=== PATIENT | female | born 1950 | race Caucasian/White ===

== ENCOUNTER 2023-06-29 09:27 | Emergency (ER) | payer MEDICARE ==
[2023-06-29 10:17] LABS: BASOPHILS ABSOLUTE AUTO 0.1 x10^3/uL (0.0-0.2); BASOPHILS PERCENT AUTO 0.6 % (0.2-1.2); EOSINOPHILS ABSOLUTE AUTO 0.1 x10^3/uL (0.0-0.5); HEMATOCRIT 43.7 % (33.0-47.0); HEMOGLOBIN 14.1 g/dL (12.0-16.0); IMMATURE GRAN ABSOLUTE AUTO 0.02 x10^3/uL (0.00-0.07); LYMPHOCYTES ABSOLUTE AUTO 2.3 x10^3/uL (1.0-4.8); LYMPHOCYTES PERCENT AUTO 27.5 % (25.0-50.0); MEAN CORPUSCULAR HEMOGLOBIN 31.8 pg (26.0-32.0); MEAN CORPUSCULAR HGB CONC 32.3 g/dL (32.0-36.0); MEAN CORPUSCULAR VOLUME 98.4 fL (78.0-93.0); MONOCYTES ABSOLUTE AUTO 0.4 x10^3/uL (0.0-0.8); MONOCYTES PERCENT AUTO 4.9 % (2.0-11.0); NEUTROPHILS ABSOLUTE AUTO 5.5 x10^3/uL (1.8-7.7); NEUTROPHILS PERCENT AUTO 65.8 % (50.0-80.0); PLATELET COUNT,PLT 494 x10^3/uL (130-400); RED BLOOD CELL COUNT 4.44 x10^6/uL (4.00-5.50); WHITE BLOOD CELL COUNT,WBC 8.4 x10^3/uL (4.0-10.0)
[2023-06-29 10:28] LABS: INR 0.9 (0.9-1.1); PROTHROMBIN TIME 10.1 SEC (9.5-12.2)
[2023-06-29 10:32] LABS: A/G RATIO 0.62; ALANINE AMINOTRANSFERASE,ALT 20 U/L (14-59); ALBUMIN 3.3 g/dL (3.4-5.0); ALKALINE PHOSPHATASE 147 U/L (46-116); ASPARTATE AMNIOTRANSFERASE,AST 19 U/L (15-37); BILIRUBIN TOTAL 0.2 mg/dL (0.2-1.0); BLOOD UREA NITROGEN,BUN 9 mg/dL (7-18); CALCIUM 9.5 mg/dL (8.5-10.1); CARBON DIOXIDE,CO2 32 mmol/L (21-32); CHLORIDE,CL 101 mmol/L (98-107); CREATININE 0.7 mg/dL (0.55-1.02); GLUCOSE RANDOM 110 mg/dL (70-99); MAGNESIUM 1.6 mg/dL (1.8-2.4); POTASSIUM,K 3.6 mmol/L (3.5-5.1); PROTEIN TOTAL,TP 8.6 g/dL (6.4-8.2); SODIUM,NA 142 mmol/L (136-145)
[2023-06-29 10:33] LABS: ANION GAP 12.6 mmol/L (5-15); ESTIMATED GFR 91 mL/min (>=60)
[2023-06-29 11:04] VITALS: BP 182/81; PULSE 68
== END 2023-06-29 10:55 | disposition home or self-care (01) ==
LOC: VM.ED 09:27
DX: J44.1 Chronic obstructive pulmonary disease with (acute) exacerbation (principal); I10 Essential (primary) hypertension; E78.00 Pure hypercholesterolemia, unspecified; F17.210 Nicotine dependence, cigarettes, uncomplicated; Z88.8 Allergy status to other drugs, medicaments and biological substances; Z79.899 Other long term (current) drug therapy
CPT/HCPCS: 36415; 71045; 80053; 83735; 84484; 85025; 85610; 85730; 93005; 93010; 99284; 99285

== ENCOUNTER 2024-05-18 18:23 | Emergency (ER) | payer MEDICARE ==
[2024-05-18] MEDS ORDERED: Sodium Chloride 0.9% 10 ML Syringe FLUSH PRN (18:32)
[2024-05-18] MEDS: Diltiazem 50 MG/10 ML SDV IVPUSH ONE ×2 (18:39→19:31)
[2024-05-18 18:42] LABS: BASOPHILS PERCENT AUTO 0.2 % (0.2-1.2); EOSINOPHILS ABSOLUTE AUTO 0.1 x10^3/uL (0.0-0.5); EOSINOPHILS PERCENT AUTO 0.8 % (0.0-4.0); HEMATOCRIT 45.9 % (33.0-47.0); HEMOGLOBIN 15.2 g/dL (12.0-16.0); IMMATURE GRAN ABSOLUTE AUTO 0.02 x10^3/uL (0.00-0.07); LYMPHOCYTES ABSOLUTE AUTO 3.2 x10^3/uL (1.0-4.8); LYMPHOCYTES PERCENT AUTO 25.5 % (25.0-50.0); MEAN CORPUSCULAR HEMOGLOBIN 33.3 pg (26.0-32.0); MEAN CORPUSCULAR HGB CONC 33.1 g/dL (32.0-36.0); MEAN CORPUSCULAR VOLUME 100.4 fL (78.0-93.0); MONOCYTES ABSOLUTE AUTO 0.8 x10^3/uL (0.0-0.8); MONOCYTES PERCENT AUTO 6.4 % (2.0-11.0); NEUTROPHILS ABSOLUTE AUTO 8.5 x10^3/uL (1.8-7.7); NEUTROPHILS PERCENT AUTO 66.9 % (50.0-80.0); PLATELET COUNT,PLT 368 x10^3/uL (130-400); RED BLOOD CELL COUNT 4.57 x10^6/uL (4.00-5.50); WHITE BLOOD CELL COUNT,WBC 12.6 x10^3/uL (4.0-10.0)
[2024-05-18 18:55] LABS: INR 0.9 (0.9-1.1); PROTHROMBIN TIME 9.6 SEC (8.9-11.5)
[2024-05-18 19:02] LABS: A/G RATIO 0.7; ALBUMIN 3.5 g/dL (3.4-5.0); BILIRUBIN TOTAL 0.2 mg/dL (0.2-1.0); CALCIUM 9.5 mg/dL (8.5-10.1); EST CRCL DRUG DOSING (CG) 25.45 mL/min; POTASSIUM,K 4.4 mmol/L (3.5-5.1); PROTEIN TOTAL,TP 8.5 g/dL (6.4-8.2)
[2024-05-18 19:04] LABS: ANION GAP 15.4 mmol/L (5-15)
[2024-05-18 19:09] VITALS: PULSE 107
[2024-05-18] MEDS ORDERED: Diltiazem 125 MG in Sodium Chloride 0.9% 100 ML IV SCH (19:30)
[2024-05-18 21:21] VITALS: BP 120/76
== END 2024-05-18 20:15 | disposition short-term general hospital (02) ==
LOC: VM.ED 18:23
DX: I48.91 Unspecified atrial fibrillation (principal); E78.00 Pure hypercholesterolemia, unspecified; Z79.899 Other long term (current) drug therapy; Z88.5 Allergy status to narcotic agent; Z88.8 Allergy status to other drugs, medicaments and biological substances
CPT/HCPCS: 71045; 80053; 84484; 85025; 85610; 93005; 93010; 96374; 96376; 99284; 99285-25; J3490

== ENCOUNTER 2025-01-06 16:29 | Inpatient (IN) | payer MEDICARE ==
[2025-01-06] MEDS: Ibuprofen 200 MG Tab PO STA (17:16)
[2025-01-06] MEDS: Ondansetron 4 MG/2 ML SDV IVPUSH ONE (17:52)
[2025-01-06] MEDS: HYDROmorphone 0.5 MG/0.5 ML Syringe IVPUSH ONE (17:53)
[2025-01-06 17:58] LABS: BASOPHILS PERCENT AUTO 0.4 % (0.2-1.2); EOSINOPHILS ABSOLUTE AUTO 0.1 x10^3/uL (0.0-0.5); EOSINOPHILS PERCENT AUTO 0.5 % (0.0-4.0); HEMATOCRIT 40.3 % (33.0-47.0); HEMOGLOBIN 13.5 g/dL (12.0-16.0); IMMATURE GRAN ABSOLUTE AUTO 0.03 x10^3/uL (0.00-0.07); LYMPHOCYTES ABSOLUTE AUTO 2.1 x10^3/uL (1.0-4.8); MEAN CORPUSCULAR HEMOGLOBIN 32.1 pg (26.0-32.0); MEAN CORPUSCULAR HGB CONC 33.5 g/dL (32.0-36.0); MONOCYTES ABSOLUTE AUTO 0.7 x10^3/uL (0.0-0.8); MONOCYTES PERCENT AUTO 6.9 % (2.0-11.0); NEUTROPHILS PERCENT AUTO 70.9 % (50.0-80.0); PLATELET COUNT,PLT 333 x10^3/uL (130-400); WHITE BLOOD CELL COUNT,WBC 9.8 x10^3/uL (4.0-10.0)
[2025-01-06 18:14] LABS: INR 1.5 (0.9-1.1); PROTHROMBIN TIME 15.5 SEC (9.6-12.0)
[2025-01-06] MEDS: diazePAM 10 MG/2 ML Syringe IVPUSH ONE (18:15)
[2025-01-06 18:20] LABS: A/G RATIO 0.88; ALBUMIN 3.6 g/dL (3.4-5.0); BILIRUBIN TOTAL 0.2 mg/dL (0.2-1.0); CALCIUM 9.7 mg/dL (8.5-10.1); CREATININE 0.9 mg/dL (0.55-1.02); EST CRCL DRUG DOSING (CG) 29.89 mL/min; POTASSIUM,K 5.5 mmol/L (3.5-5.1); PROTEIN TOTAL,TP 7.7 g/dL (6.4-8.2)
[2025-01-06 18:22] LABS: ANION GAP 15.5 mmol/L (5-15)
[2025-01-06] MEDS ORDERED: Flumazenil 0.1 MG/ML 5 ML MDV IVPUSH PRN (18:41)
[2025-01-06] MEDS ORDERED: Albuterol 0.083% 2.5 MG/3 ML Neb Soln INH PRN (20:26)
[2025-01-06] MEDS ORDERED: GLYCOPYR INH SCH (21:00)
[2025-01-06] MEDS ORDERED: BUDESONIDE INH SCH (21:00)
[2025-01-06] MEDS ORDERED: FORMOTEROL INH SCH (21:00)
[2025-01-06] MEDS: Acetaminophen 325 MG Tab PO PRN (21:41)
[2025-01-06] MEDS: Metoprolol Tartrate 25 MG Tab PO SCH (21:42)
[2025-01-06] MEDS: atorvaSTATin 10 MG Tab PO SCH (21:45)
[2025-01-07] MEDS: HYDROmorphone 0.5 MG/0.5 ML Syringe IVPUSH ONE (01:10)
[2025-01-07] MEDS: diazePAM 10 MG/2 ML Syringe IVPUSH ONE (04:49)
[2025-01-07] MEDS: Sodium Chloride 0.9% 1,000 ML IV SCH (06:41)
[2025-01-07 07:25] LABS: BASOPHILS PERCENT AUTO 0.4 % (0.2-1.2); EOSINOPHILS ABSOLUTE AUTO 0.1 x10^3/uL (0.0-0.5); EOSINOPHILS PERCENT AUTO 0.6 % (0.0-4.0); HEMATOCRIT 36.8 % (33.0-47.0); HEMOGLOBIN 12.2 g/dL (12.0-16.0); IMMATURE GRAN ABSOLUTE AUTO 0.02 x10^3/uL (0.00-0.07); LYMPHOCYTES ABSOLUTE AUTO 2.3 x10^3/uL (1.0-4.8); LYMPHOCYTES PERCENT AUTO 23.3 % (25.0-50.0); MEAN CORPUSCULAR HEMOGLOBIN 32.6 pg (26.0-32.0); MEAN CORPUSCULAR HGB CONC 33.2 g/dL (32.0-36.0); MEAN CORPUSCULAR VOLUME 98.4 fL (78.0-93.0); MONOCYTES ABSOLUTE AUTO 0.9 x10^3/uL (0.0-0.8); MONOCYTES PERCENT AUTO 8.6 % (2.0-11.0); NEUTROPHILS ABSOLUTE AUTO 6.6 x10^3/uL (1.8-7.7); NEUTROPHILS PERCENT AUTO 66.9 % (50.0-80.0); PLATELET COUNT,PLT 296 x10^3/uL (130-400); RED BLOOD CELL COUNT 3.74 x10^6/uL (4.00-5.50); WHITE BLOOD CELL COUNT,WBC 9.9 x10^3/uL (4.0-10.0)
[2025-01-07 07:27] LABS: CALCIUM 8.7 mg/dL (8.5-10.1); CREATININE 1.1 mg/dL (0.55-1.02); EST CRCL DRUG DOSING (CG) 24.49 mL/min; POTASSIUM,K 5.3 mmol/L (3.5-5.1)
[2025-01-07 07:28] LABS: INR 1.9 (0.9-1.1); PROTHROMBIN TIME 19.5 SEC (9.6-12.0)
[2025-01-07 07:29] LABS: ANION GAP 12.3 mmol/L (5-15)
[2025-01-07] MEDS ORDERED: Naloxone 0.4 MG/ML SDV IVPUSH PRN (08:23)
[2025-01-07] MEDS: amLODIPine 5 MG Tab PO SCH (09:09)
[2025-01-07] MEDS: Calcium Carbonate/Vitamin D3 1250 MG-5 MCG Tab PO SCH (09:09)
[2025-01-07 09:10] VITALS: PULSE 72
[2025-01-07] MEDS: Acetaminophen/HYDROcodone 325-5 MG Tab PO PRN (09:28)
[2025-01-07] MEDS: Phytonadione 5 MG Tab PO ONE (13:42)
[2025-01-07] MEDS: HYDROmorphone 0.5 MG/0.5 ML Syringe IVPUSH PRN (14:48)
[2025-01-07] MEDS: Arformoterol 15 MCG/2 ML Neb Soln NEB SCH (14:55)
[2025-01-07] MEDS: Budesonide 0.5 MG/2 ML Neb Susp NEB SCH (14:59)
[2025-01-07 17:30] VITALS: BP 127/62
[2025-01-07] MEDS: Ondansetron 4 MG/2 ML SDV IV PRN (17:42)
[2025-01-08] MEDS ORDERED: Nicotine 14 MG/24 Hr Patch TRDERM SCH (09:00)
== END 2025-01-07 17:45 | disposition short-term general hospital (02) | DRG 534 ==
LOC: VM.ED 16:29 → SUPCPDRO 16:29 → VM.MS 18:02 → OBSVTOIN 01-07 11:59
PROVIDERS: ADMIT Internal Medicine; ATTEND Internal Medicine
PROC: 0T9B70Z Drainage of Bladder with Drainage Device, Via Natural or Artificial Opening (ICD-10-PCS; principal; 2025-01-07)
DX: S72.421A Displaced fracture of lateral condyle of right femur, initial encounter for closed fracture (principal); S82.141A Displaced bicondylar fracture of right tibia, initial encounter for closed fracture; M81.0 Age-related osteoporosis without current pathological fracture; E78.00 Pure hypercholesterolemia, unspecified; H91.90 Unspecified hearing loss, unspecified ear; H54.7 Unspecified visual loss; J44.9 Chronic obstructive pulmonary disease, unspecified; I10 Essential (primary) hypertension; Z96.641 Presence of right artificial hip joint; F41.1 Generalized anxiety disorder; E87.5 Hyperkalemia; F17.210 Nicotine dependence, cigarettes, uncomplicated; R33.9 Retention of urine, unspecified; I48.0 Paroxysmal atrial fibrillation; Z79.52 Long term (current) use of systemic steroids; Z88.5 Allergy status to narcotic agent; Z88.6 Allergy status to analgesic agent; Y92.096 Garden or yard of other non-institutional residence as the place of occurrence of the external cause; Z79.01 Long term (current) use of anticoagulants; I25.2 Old myocardial infarction; Z98.890 Other specified postprocedural states; Z79.899 Other long term (current) drug therapy; W18.30XA Fall on same level, unspecified, initial encounter; Z79.51 Long term (current) use of inhaled steroids; W19.XXXA Unspecified fall, initial encounter; Y99.0 Civilian activity done for income or pay
CPT/HCPCS: 36415; 73560-RT; 73700-RT; 80048; 80053; 84132; 85025; 85610; 94640; 96374; 96375; 99236-GT; 99284; 99284-25; A4315; A9270-GY; J1171; J2405; J3360; J3490; J7030